=== PATIENT | male | born 1955 | race Caucasian/White ===

== ENCOUNTER 2018-03-02 17:08 | Emergency (ER) | payer SELFPAY ==
[2018-03-02 17:15] VITALS: BP 148/106
== END 2018-03-02 20:42 | disposition left against medical advice (07) ==
LOC: ED 17:08
DX: S01.81XA Laceration without foreign body of other part of head, initial encounter (principal); Z53.21 Procedure and treatment not carried out due to patient leaving prior to being seen by health care provider; X58.XXXA Exposure to other specified factors, initial encounter